=== PATIENT | female | born 1945 | race Caucasian/White ===

== ENCOUNTER → 2017-09-23 | Outpatient (CLI) | payer MEDICARE, OTHER ==
[~2017-09-23] MED LIST: ASPI81; AUGM875T PO; BUPR-175 PO; CALC500 PO; GUAI100S6 PO; MEDR4PAK3 PO; PRIL10CA PO; SIMV5TAB32 PO
[2017-09-23 11:58] LABS: AUTOMATED NEUTROPHIL # 5.9 TH/MM3 (1.8-7.7); BASOPHIL % 0.3 % (0.0-2.0); EOSINOPHIL # 0.1 TH/MM3 (0-0.4); EOSINOPHIL % 1.2 % (0.0-4.0); HEMATOCRIT 38.6 % (35.0-46.0); HEMO FLAGS DIFF FINAL; LYMPH % 16.6 % (9.0-44.0); LYMPHOCYTE # 1.4 TH/MM3 (1.0-4.8); MEAN CELL VOLUME 90.6 FL (80.0-100.0); MEAN CORPUSCULAR HEMOGLOBIN 30.6 PG (27.0-34.0); MEAN CORPUSCULAR HGB CONC 33.8 % (32.0-36.0); MONO % 12.2 % (0.0-8.0); NEUT % 69.7 % (16.0-70.0); PLATELET COUNT 371 TH/MM3 (150-450); RED BLOOD COUNT 4.26 MIL/MM3 (4.00-5.30); RED CELL DISTRIBUTION WIDTH 12.8 % (11.6-17.2); WHITE BLOOD COUNT 8.5 TH/MM3 (4.0-11.0)
[2017-09-23 12:34] LABS: ANION GAP 5 MEQ/L (5-15); BICARBONATE 29.7 MEQ/L (21.0-32.0); BLOOD UREA NITROGEN 14 MG/DL (7-18); CHLORIDE 101 MEQ/L (98-107); GLUCOSE,FASTING 86 MG/DL (74-99); SODIUM (NA) 136 MEQ/L (136-145)
[2017-09-23 12:46] LABS: ALKALINE PHOSPHATASE 92 U/L (45-117); ALT (GPT) 25 U/L (10-53); AST (GOT) 20 U/L (15-37); GLOMERULAR FILTRATION RATE 71 ML/MIN (>89); HDL CHOLESTEROL 117.3 MG/DL (40.0-60.0); LDL CHOLESTEROL 76 MG/DL (0-99); TOTAL BILIRUBIN ADULT 0.2 MG/DL (0.2-1.0)
== END ==
LOC: ELAB 10:29
PROVIDERS: ATTEND Family Medicine
DX: G47.30 Sleep apnea, unspecified (principal); E78.5 Hyperlipidemia, unspecified; I10 Essential (primary) hypertension; M25.551 Pain in right hip; F41.8 Other specified anxiety disorders; R53.83 Other fatigue; Z79.899 Other long term (current) drug therapy
CPT/HCPCS: 36415; 80053; 80061; 82248; 84443; 85025

== ENCOUNTER 2017-10-04 20:45 | Emergency (ER) | payer MEDICARE, OTHER ==
[~2017-10-04] VITALS: Ht 157.5 cm; Wt 61.0 kg
[2017-10-04 20:48] VITALS: BP 200/92; PULSE 78; RESP 16; TEMP 97.8; O2SAT 97
[2017-10-04] MEDS ORDERED: CALC1TAB87 PO (20:57)
[2017-10-04] MEDS ORDERED: SIMV20TA PO (20:57)
[2017-10-04] MEDS ORDERED: ASPI81TA23 PO (20:57)
[2017-10-04] MEDS ORDERED: OMEP20TA93 PO (20:57)
[2017-10-04] MEDS ORDERED: BUPR150CR PO (20:57)
[2017-10-04] MEDS ORDERED: BACT800T5 PO (21:23)
[2017-10-04] MEDS ORDERED: TYLETAB34 PO (21:23)
[2017-10-04] MEDS ORDERED: CLIN150C14 PO (21:23)
--- NOTE | 2017-10-04 21:23 | PD ---
HPI Chief Complaint: Skin Problem Time Seen by Provider: 21:17 Travel History International Travel<30 days: No Contact w/Intl Traveler<30days: No Traveled to known affect area: No History of Present Illness HPI 72-year-old female complaining of pain and swelling on the right side of the nose. Patient states that it started with a small lesion on the inside of the right side of the nose. Patient states that she has increasing pain and swelling and redness since then. Patient denies any fever chills. Patient denies any injury to the nose. PFSH Past Medical History High Cholesterol: Yes Diminished Hearing: No Diverticulitis: Yes Immunizations Current: No Tetanus Vaccination: < 5 Years Influenza Vaccination: No ?: Not Menopausal: Yes Past Surgical History Appendectomy: Yes Cholecystectomy: Yes Hysterectomy: Yes Social History Alcohol Use: No Tobacco Use: No Substance Use: No Allergies-Medications (Allergen,Severity, Reaction): Coded Allergies: No Known Allergies (Verified Adverse Reaction, Unknown, 10/04/17) Reported Meds & Prescriptions Reported Meds & Active Scripts Active Clindamycin (Clindamycin HCl) 150 Mg Cap 300 Mg PO QID Bactrim DS (Sulfamethoxazole-Trimethoprim) 800-160 Mg Tab 1 Tab PO BID Tylenol-Codeine #3 (Acetaminophen-Codeine) 300-30 mg Tab 1-2 Tab PO Q6H PRN Reported Calcium 600 with Vitamin D (Calcium Carbonate-Cholecalciferol) 600-400 mg-Unit Tab 2 Tab PO DAILY Wellbutrin SR 12 HR (Bupropion HCl) 150 Mg Tab 150 Mg PO DAILY Omeprazole 20 Mg Tab 20 Mg PO DAILY Aspirin EC (Aspirin) 81 Mg Tabdr 81 Mg PO DAILY Simvastatin 20 Mg Tab 20 Mg PO DAILY Review of Systems General / Constitutional: No: Fever Eyes: No: Visual changes HENT: No: Headaches Cardiovascular: No: Chest Pain or Discomfort Respiratory: No: Shortness of Breath Gastrointestinal: No: Abdominal Pain Genitourinary: No: Dysuria Musculoskeletal: No: Pain Skin: No Rash Neurologic: No: Weakness Psychiatric: No: Depression Endocrine: No: Polydipsia Hematologic/Lymphatic: No: Easy Bruising Physical Exam Narrative GENERAL: Well-nourished, well-developed patient. SKIN: Focused skin assessment warm/dry. HEAD: Normocephalic. EYES: No scleral icterus. No injection or drainage. NECK: Supple, trachea midline. No JVD or lymphadenopathy. CARDIOVASCULAR: Regular rate and rhythm without murmurs, gallops, or rubs. RESPIRATORY: Breath sounds equal bilaterally. No accessory muscle use. GASTROINTESTINAL: Abdomen soft, non-tender, nondistended. MUSCULOSKELETAL: No cyanosis, or edema. BACK: Nontender without obvious deformity. No CVA tenderness. Patient has redness swelling tenderness on the right side the nose. No induration and no drainage noted. Data Data Last Documented VS Vital Signs Date Time Temp Pulse Resp B/P (MAP) Pulse Ox O2 Delivery O2 Flow Rate FiO2 10/04/17 21:54 72 16 175/91 (119) 10/04/17 20:48 97.8 97 Orders Orders Clindamycin Inj (Cleocin Inj) (10/04/17 21:30) Ed Discharge Order (10/04/17 21:23) Acetamin-Hydrocod 325-5 Mg ([place] 5-325 (10/04/17 21:45) MDM Medical Decision Making Medical Screen Exam Complete: Yes Emergency Medical Condition: Yes Differential Diagnosis Differential diagnosis including cellulitis, abscess. Narrative Course 72-year-old female with pain swelling right side the nose. Diagnosis Primary Impression: Cellulitis Qualified Codes: L03.211 - Cellulitis of face Patient Instructions: General Instructions Additional Instructions: Take antibiotics as directed. Tylenol No. 3 as needed for pain.. Return in 2 days for recheck. Med/Other Pt SpecificInfo: Prescription(s) given Scripts Clindamycin (Clindamycin) 150 Mg Cap 300 MG PO QID for Infection, #80 CAP 0 Refills Prov: Misael Radford MD 10/04/17 Sulfamethoxazole-Trimethoprim (Bactrim DS) 800-160 Mg Tab 1 TAB PO BID for Infection, #20 TAB 0 Refills Prov: Misael Radford MD 10/04/17 Acetaminophen-Codeine (Tylenol-Codeine #3) 300-30 mg Tab 1-2 TAB PO Q6H Y for PAIN, #20 TAB 0 Refills Prov: Misael Radford MD 10/04/17 Disposition: 01 DISCHARGE HOME Condition: Stable Misael Radford MD Oct 04, 2017 21:23
[2017-10-04] MEDS ORDERED: CLINDAMYCIN PHOS 600 MG/4 ML VIAL IM ONE (21:30)
[2017-10-04] MEDS ORDERED: ACETAMINOPHEN/HYDROcodone 325 MG/5 MG TAB PO ONE (21:45)
[2017-10-04 21:54] VITALS: BP 175/91
[2017-10-05] MEDS ORDERED: ZOFR4TAB PO (18:44)
== END 2017-10-04 21:59 | disposition home or self-care (01) ==
LOC: PHEFT 20:45
DX: L03.211 Cellulitis of face (principal); E78.00 Pure hypercholesterolemia, unspecified; Z87.19 Personal history of other diseases of the digestive system
CPT/HCPCS: 96372

== ENCOUNTER 2017-10-05 17:28 | Emergency (ER) | payer MEDICARE, OTHER ==
[~2017-10-05] VITALS: Ht 157.5 cm; Wt 58.7 kg
[~2017-10-05 17:28] MED LIST changes: -ASPI81; +ASPI81TA23 PO; -AUGM875T PO; +BACT800T5 PO; -BUPR-175 PO; +BUPR150CR PO; +CALC1TAB87 PO; -CALC500 PO; +CLIN150C14 PO; -GUAI100S6 PO; -MEDR4PAK3 PO; +OMEP20TA93 PO; -PRIL10CA PO; +SIMV20TA PO; -SIMV5TAB32 PO; +TYLETAB34 PO
[2017-10-05 17:34] VITALS: PULSE 80; RESP 16; TEMP 97.8; O2SAT 98
[2017-10-05 17:45] VITALS: BP 178/86
[2017-10-05] MEDS ORDERED: ONDANSETRON ODT 4 MG TAB PO ONE (18:00)
--- NOTE | 2017-10-05 18:00 | PD ---
HPI Chief Complaint: GI Complaint Time Seen by Provider: 17:54 Travel History International Travel<30 days: No Contact w/Intl Traveler<30days: No Traveled to known affect area: No History of Present Illness HPI Patient presents for nausea and vomiting. Evaluated last night in the emergency room and diagnosed with right naris cellulitis. Started on Bactrim DS and clindamycin as well as Tylenol 3 for pain. Reports nausea and vomiting after breakfast this morning. Denies any known drug allergies. PFSH Past Medical History Hx Anticoagulant Therapy: No Cardiovascular Problems: Yes (CHOL) High Cholesterol: Yes Diabetes: No Diminished Hearing: No Diverticulitis: Yes Immunizations Current: No Tetanus Vaccination: > 5 Years Influenza Vaccination: No ?: Not Menopausal: Yes Past Surgical History Appendectomy: Yes Cholecystectomy: Yes Hysterectomy: Yes Social History Alcohol Use: No Tobacco Use: No Substance Use: No Allergies-Medications (Allergen,Severity, Reaction): Coded Allergies: No Known Allergies (Verified Adverse Reaction, Unknown, 10/05/17) Reported Meds & Prescriptions Reported Meds & Active Scripts Active Zofran (Ondansetron HCl) 4 Mg Tab 4 Mg PO Q6HR PRN Clindamycin (Clindamycin HCl) 150 Mg Cap 300 Mg PO QID Bactrim DS (Sulfamethoxazole-Trimethoprim) 800-160 Mg Tab 1 Tab PO BID Tylenol-Codeine #3 (Acetaminophen-Codeine) 300-30 mg Tab 1-2 Tab PO Q6H PRN Reported Calcium 600 with Vitamin D (Calcium Carbonate-Cholecalciferol) 600-400 mg-Unit Tab 2 Tab PO DAILY Wellbutrin SR 12 HR (Bupropion HCl) 150 Mg Tab 150 Mg PO DAILY Omeprazole 20 Mg Tab 20 Mg PO DAILY Aspirin EC (Aspirin) 81 Mg Tabdr 81 Mg PO DAILY Simvastatin 20 Mg Tab 20 Mg PO DAILY Review of Systems General / Constitutional: No: Fever Eyes: No: Visual changes HENT: No: Headaches Cardiovascular: No: Chest Pain or Discomfort Respiratory: No: Shortness of Breath Gastrointestinal: Positive: Nausea, Vomiting, No: Abdominal Pain Genitourinary: No: Dysuria Musculoskeletal: No: Pain Skin: No Rash Neurologic: No: Weakness Psychiatric: No: Depression Endocrine: No: Polydipsia Hematologic/Lymphatic: No: Easy Bruising Physical Exam Narrative GENERAL: Well-nourished, well-developed patient. SKIN: Focused skin assessment warm/dry. HEAD: Normocephalic. EYES: No scleral icterus. No injection or drainage. Right nare mildly erythematous with mild erythema NECK: Supple, trachea midline. No JVD or lymphadenopathy. CARDIOVASCULAR: Regular rate and rhythm without murmurs, gallops, or rubs. RESPIRATORY: Breath sounds equal bilaterally. No accessory muscle use. GASTROINTESTINAL: Abdomen soft, non-tender, nondistended. MUSCULOSKELETAL: No cyanosis, or edema. BACK: Nontender without obvious deformity. No CVA tenderness. Data Data Last Documented VS Vital Signs Date Time Temp Pulse Resp B/P (MAP) Pulse Ox O2 Delivery O2 Flow Rate FiO2 10/05/17 17:45 178/86 (116) 10/05/17 17:34 97.8 80 16 98 Orders Orders Ondansetron Odt (Zofran Odt) (10/05/17 18:00) [facility] Medical Decision Making Medical Screen Exam Complete: Yes Emergency Medical Condition: Yes Differential Diagnosis Drug reaction, nausea and vomiting, viral gastritis Narrative Course assessment and plan discussed with patient and at bedside. Nausea and vomiting resolved, tolerated fluid challenge. Diagnosis Primary Impression: Nausea and vomiting Qualified Codes: R11.2 - Nausea with vomiting, unspecified Patient Instructions: General Instructions Additional Instructions: Encouraged follow-up with PCP, Motrin or Tylenol for pain, discontinue T3, discontinue clindamycin, continue Bactrim DS 1 tab by mouth twice a day. Encouraged a bland high-fiber brat diet. Encouraged fluids. Anti-emetic as needed Return to the emergency room with any onset of new symptoms. Med/Other Pt SpecificInfo: Prescription(s) given Scripts Ondansetron (Zofran) 4 Mg Tab 4 MG PO Q6HR Y for NAUSEA OR VOMITING, #20 TAB 0 Refills Prov: Andrey Tsang MD 10/05/17 Disposition: 01 DISCHARGE HOME Condition: Good Andrey Tsang MD Oct 05, 2017 18:00
[2017-10-05] MEDS ORDERED: ZOFR4TAB PO (18:44)
[2017-10-05 19:49] VITALS: BP 156/84; PULSE 77; RESP 18; O2SAT 97
== END 2017-10-05 19:50 | disposition home or self-care (01) ==
LOC: PHED 17:28
DX: R11.2 Nausea with vomiting, unspecified (principal); E78.00 Pure hypercholesterolemia, unspecified
CPT/HCPCS: 99283

== ENCOUNTER → 2017-12-11 | Outpatient (CLI) | payer MEDICARE, OTHER ==
[~2017-12-11] MED LIST changes: +ZOFR4TAB PO
[2017-12-11 11:39] LABS: AUTOMATED NEUTROPHIL # 12.4 TH/MM3 (1.8-7.7); BASOPHIL % 0.3 % (0.0-2.0); EOSINOPHIL % 0.2 % (0.0-4.0); HEMATOCRIT 37.9 % (35.0-46.0); HEMOGLOBIN 12.7 GM/DL (11.6-15.3); LYMPH % 7.8 % (9.0-44.0); LYMPHOCYTE # 1.1 TH/MM3 (1.0-4.8); MEAN CELL VOLUME 88.1 FL (80.0-100.0); MEAN CORPUSCULAR HEMOGLOBIN 29.6 PG (27.0-34.0); MEAN CORPUSCULAR HGB CONC 33.6 % (32.0-36.0); MEAN PLATELET VOLUME 7.5 FL (7.0-11.0); MONO % 4.5 % (0.0-8.0); MONOCYTE # 0.6 TH/MM3 (0-0.9); NEUT % 87.2 % (16.0-70.0); PLATELET COUNT 555 TH/MM3 (150-450); RED CELL DISTRIBUTION WIDTH 13.2 % (11.6-17.2); WHITE BLOOD COUNT 14.2 TH/MM3 (4.0-11.0)
[2017-12-11 11:40] LABS: BILIRUBIN, URINE NEG (NEG); BLOOD, URINE NEG (NEG); GLUCOSE,URINE NEG (NEG); KETONE, URINE NEG (NEG); NITRITE,URINE NEG (NEG); PH, URINE 6.5 (5.0-8.5); URINE COLOR LIGHT-YELLOW (YELLW/STRAW); URINE LEUKOCYTE ESTERASE NEG (NEG)
[2017-12-11 11:58] LABS: WESTERGREN SEDIMENTATION RATE 36 mm/hr (0-30)
[2017-12-11 12:13] LABS: ALBUMIN 3.8 GM/DL (3.4-5.0); ALT (GPT) 28 U/L (10-53); AST (GOT) 25 U/L (15-37); BICARBONATE 28.9 MEQ/L (21.0-32.0); BLOOD UREA NITROGEN 17 MG/DL (7-18); CALCIUM 9.4 MG/DL (8.5-10.1); CHLORIDE 101 MEQ/L (98-107); CREATININE 0.86 MG/DL (0.50-1.00); GLOMERULAR FILTRATION RATE 65 ML/MIN (>89); GLUCOSE,RANDOM 96 MG/DL (74-106); SODIUM (NA) 137 MEQ/L (136-145)
[2017-12-11 12:14] LABS: ALKALINE PHOSPHATASE 115 U/L (45-117); C-REACTIVE PROTEIN 0.71 MG/DL (0.00-0.30); TOTAL BILIRUBIN ADULT 0.3 MG/DL (0.2-1.0); TOTAL PROTEIN 8.4 GM/DL (6.4-8.2)
[2017-12-11 12:16] LABS: RHEUMATOID FACTOR SCREEN NEGATIVE (NEGATIVE)
[2017-12-11 13:21] LABS: HEPATITIS B SURFACE ANTIGEN NEGATIVE (NEGATIVE); HEPATITIS C AB IgG REACTIVE (NEGATIVE)
[2017-12-13 23:54] LABS: THYROID PEROX AB (MICROSOMAL) LESS THAN 1 IU/mL (<9)
[2017-12-14 23:51] LABS: HEPATITIS B CORE TOTAL AB NONREACTIVE (NON-REACTVE)
[2017-12-15 23:50] LABS: THYROGLOB ABS LESS THAN 1 IU/mL (< OR = 1)
== END ==
LOC: ELAB 09:04
PROVIDERS: ATTEND Family Medicine
DX: M19.90 Unspecified osteoarthritis, unspecified site (principal); R53.83 Other fatigue
CPT/HCPCS: 36415; 80053; 81001; 82306; 84443; 85025; 85652; 86140; 86200; 86317; 86376; 86430; 86704; 86800; 86803; 87340

== ENCOUNTER → 2018-01-05 | Outpatient (CLI) | payer MEDICARE, OTHER ==
[2018-01-05 14:17] LABS: BICARBONATE 31.3 MEQ/L (21.0-32.0); BLOOD UREA NITROGEN 14 MG/DL (7-18); C-REACTIVE PROTEIN LESS THAN 0.29 MG/DL (0.00-0.30); CALCIUM 9.3 MG/DL (8.5-10.1); CHLORIDE 102 MEQ/L (98-107); GLOMERULAR FILTRATION RATE 70 ML/MIN (>89); GLUCOSE,FASTING 85 MG/DL (74-99); SODIUM (NA) 139 MEQ/L (136-145)
== END ==
LOC: ELAB 10:22
DX: M19.90 Unspecified osteoarthritis, unspecified site (principal); R77.8 Other specified abnormalities of plasma proteins; I10 Essential (primary) hypertension; E78.5 Hyperlipidemia, unspecified
CPT/HCPCS: 36415; 80048; 84165; 86140; 86803; 87522; 87902

== ENCOUNTER 2018-01-22 05:57 | Emergency (ER) | payer MEDICARE, OTHER ==
[~2018-01-22] VITALS: Ht 157.5 cm; Wt 58.0 kg
[2018-01-22 06:01] VITALS: BP 142/85; PULSE 78; RESP 18; TEMP 98.5; O2SAT 99
[2018-01-22 06:35] VITALS: BP 149/83; PULSE 73; RESP 18; O2SAT 97
--- NOTE | 2018-01-22 06:37 | PD ---
HPI Chief Complaint: Vomiting Time Seen by Provider: 06:24 Travel History International Travel<30 days: No Contact w/Intl Traveler<30days: No Traveled to known affect area: No History of Present Illness HPI The patient is a 72-year-old female that has not been feeling well for a day and a half. She did not eat or drink anything. The last 12 hours she started vomiting and could not hold down any liquids at all. She denies any diarrhea. She denies any fever. She denies any blood in the vomitus and she has not had any blood in the stool. She is not on any new medications. She had a similar episode in September 2017 when she was on clindamycin and Bactrim but the clindamycin was discontinued and she did well with simply Zofran. She has no drug allergies. The patient states her abdominal discomfort is a 6/10 in the bilateral lower quadrants. She denies any dysuria, frequency or urgency. She states there her appendix, gallbladder and uterus have all been removed. PFSH Past Medical History Hx Anticoagulant Therapy: No Cardiovascular Problems: Yes (CHOL) High Cholesterol: Yes Diabetes: No Diminished Hearing: No Diverticulitis: Yes Immunizations Current: No Menopausal: Yes Past Surgical History Appendectomy: Yes Cholecystectomy: Yes Hysterectomy: Yes Social History Alcohol Use: No Tobacco Use: No Substance Use: No Allergies-Medications (Allergen,Severity, Reaction): Coded Allergies: No Known Allergies (Verified Adverse Reaction, Unknown, 01/22/18) Reported Meds & Prescriptions Reported Meds & Active Scripts Active Reported Calcium 600 with Vitamin D (Calcium Carbonate-Cholecalciferol) 600-400 mg-Unit Tab 2 Tab PO DAILY Wellbutrin SR 12 HR (Bupropion HCl) 150 Mg Tab 150 Mg PO DAILY Omeprazole 20 Mg Tab 20 Mg PO DAILY Aspirin EC (Aspirin) 81 Mg Tabdr 81 Mg PO DAILY Simvastatin 20 Mg Tab 20 Mg PO DAILY Review of Systems Except as stated in HPI: all other systems reviewed are Neg Physical Exam Narrative GENERAL: The patient is alert, oriented 3, moderately dehydrated appearing in slight apparent distress with her bilateral lower quadrant discomfort. Her vital signs show blood pressure 142/85 but are otherwise normal. SKIN: Focused skin assessment warm/dry. HEAD: Atraumatic. Normocephalic. EYES: Pupils equal and round. No scleral icterus. No injection or drainage. ENT: No nasal bleeding or discharge. Mucous membranes pink and moist. NECK: Trachea midline. No JVD. CARDIOVASCULAR: Regular rate and rhythm. No murmur appreciated. RESPIRATORY: No accessory muscle use. Clear to auscultation. Breath sounds equal bilaterally. GASTROINTESTINAL: Abdomen soft, with tenderness to direct palpation in the bilateral lower quadrants, nondistended. Hepatic and splenic margins not palpable. No guarding or rebound is present. MUSCULOSKELETAL: No obvious deformities. No clubbing. No cyanosis. No edema. NEUROLOGICAL: Awake and alert. No obvious cranial nerve deficits. Motor grossly within normal limits. Normal speech. PSYCHIATRIC: Appropriate mood and affect; insight and judgment normal. Data Data Last Documented VS Vital Signs Date Time Temp Pulse Resp B/P (MAP) Pulse Ox O2 Delivery O2 Flow Rate FiO2 01/22/18 06:35 73 18 149/83 (105) 97 01/22/18 06:01 98.5 Orders Orders Complete Blood Count With Diff (01/22/18 06:41) Comprehensive Metabolic Panel (01/22/18 06:41) Lipase (01/22/18 06:41) Urinalysis - C+S If Indicated (01/22/18 06:41) Ct Abd/Pel W Iv Contrast(Rout) (01/22/18 06:41) Iv Access Insert/Monitor (01/22/18 06:41) Ecg Monitoring (01/22/18 06:41) Oximetry (01/22/18 06:41) Sodium Chloride 0.9% Flush (Ns Flush) (01/22/18 06:45) Sodium Chlor 0.9% 1000 Ml Inj (Ns 1000 M (01/22/18 06:45) Ondansetron Inj (Zofran Inj) (01/22/18 06:45) Labs Laboratory Tests Test 01/22/18 06:30 White Blood Count 10.3 TH/MM3 Red Blood Count 4.95 MIL/MM3 Hemoglobin 14.0 GM/DL Hematocrit 43.5 % Mean Corpuscular Volume 88.1 FL Mean Corpuscular Hemoglobin 28.3 PG Mean Corpuscular Hemoglobin Concent 32.2 % Red Cell Distribution Width 12.7 % Platelet Count 437 TH/MM3 Mean Platelet Volume 7.7 FL Neutrophils (%) (Auto) 83.0 % Lymphocytes (%) (Auto) 7.1 % Monocytes (%) (Auto) 9.1 % Eosinophils (%) (Auto) 0.6 % Basophils (%) (Auto) 0.2 % Neutrophils # (Auto) 8.6 TH/MM3 Lymphocytes # (Auto) 0.7 TH/MM3 Monocytes # (Auto) 0.9 TH/MM3 Eosinophils # (Auto) 0.1 TH/MM3 Basophils # (Auto) 0.0 TH/MM3 CBC Comment DIFF FINAL Differential Comment Sodium Level 135 MEQ/L Potassium Level 3.7 MEQ/L Chloride Level 100 MEQ/L MDM Medical Decision Making Medical Screen Exam Complete: Yes Emergency Medical Condition: Yes Medical Record Reviewed: Yes Differential Diagnosis Gastritis, gastroenteritis, colitis, small bowel obstruction-unlikely, medication reaction-unlikely Narrative Course It is now 0700 and the patient is transferred to Dr. Burks. Lucas Ortiz MD Jan 22, 2018 06:37
[2018-01-22] MEDS ORDERED: SODIUM CHLORIDE 0.9% FLUSH 10 ML FLUSH IV FLUSH PRN (06:45)
[2018-01-22] MEDS ORDERED: ONDANSETRON HCL 4 MG/2 ML VIAL IV ONE (06:45)
[2018-01-22 06:50] LABS: AUTOMATED NEUTROPHIL # 8.6 TH/MM3 (1.8-7.7); BASOPHIL % 0.2 % (0.0-2.0); EOSINOPHIL # 0.1 TH/MM3 (0-0.4); EOSINOPHIL % 0.6 % (0.0-4.0); HEMATOCRIT 43.5 % (35.0-46.0); LYMPH % 7.1 % (9.0-44.0); LYMPHOCYTE # 0.7 TH/MM3 (1.0-4.8); MEAN CELL VOLUME 88.1 FL (80.0-100.0); MEAN CORPUSCULAR HEMOGLOBIN 28.3 PG (27.0-34.0); MEAN CORPUSCULAR HGB CONC 32.2 % (32.0-36.0); MEAN PLATELET VOLUME 7.7 FL (7.0-11.0); MONO % 9.1 % (0.0-8.0); MONOCYTE # 0.9 TH/MM3 (0-0.9); PLATELET COUNT 437 TH/MM3 (150-450); RED BLOOD COUNT 4.95 MIL/MM3 (4.00-5.30); RED CELL DISTRIBUTION WIDTH 12.7 % (11.6-17.2); WHITE BLOOD COUNT 10.3 TH/MM3 (4.0-11.0)
[2018-01-22] MEDS: SODIUM CHLOR 0.9% 1000 ML INJ 1,000 ML IV SCH ×2 (06:50→07:39)
[2018-01-22 07:00] VITALS: BP 140/70; PULSE 71; RESP 16; O2SAT 98
[2018-01-22 07:05] LABS: CHLORIDE 100 MEQ/L (98-107); SODIUM (NA) 135 MEQ/L (136-145)
[2018-01-22 07:09] LABS: ALBUMIN 3.7 GM/DL (3.4-5.0); BICARBONATE 29.5 MEQ/L (21.0-32.0); CALCIUM 9.1 MG/DL (8.5-10.1); GLUCOSE,RANDOM 94 MG/DL (74-106)
[2018-01-22 07:10] LABS: BLOOD UREA NITROGEN 13 MG/DL (7-18)
[2018-01-22 07:12] LABS: ALT (GPT) 57 U/L (10-53); AST (GOT) 48 U/L (15-37); CREATININE 0.77 MG/DL (0.50-1.00); GLOMERULAR FILTRATION RATE 73 ML/MIN (>89)
[2018-01-22 07:14] LABS: TOTAL BILIRUBIN ADULT 0.3 MG/DL (0.2-1.0); TOTAL PROTEIN 8.5 GM/DL (6.4-8.2)
[2018-01-22 07:15] LABS: ALKALINE PHOSPHATASE 112 U/L (45-117)
[2018-01-22] MEDS ORDERED: IOHEXOL 350 MG/ML 10 ML VIAL (for RAD DIAG) IVCONTRAST ONE (07:33)
--- NOTE | 2018-01-22 07:48 | RADRPT ---
EXAM DATE/TIME: 01/22/2018 07:24 [place] COMPARISON: No previous studies available for comparison. INDICATIONS : Bilateral lower quadrant pain. Vomiting x 1 1/2 days. IV CONTRAST: 75 cc Omnipaque 350 (iohexol) IV ORAL CONTRAST: No oral contrast ingested. RADIATION DOSE: 5.47 CTDIvol (mGy) MEDICAL HISTORY : Diverticulitis. SURGICAL HISTORY : Appendectomy. Cholecystectomy.Hysterectomy. ENCOUNTER: Initial ACUITY: 2 days PAIN SCALE: 1/10 LOCATION: Bilateral lower quadrant TECHNIQUE: Volumetric scanning of the abdomen and pelvis was performed. Using automated exposure control and ad justment of the mA and/or kV according to patient size, radiation dose was kept as low as reasonably achievable to obtain optimal diagnostic quality images. DICOM format image data is available electro nically for review and comparison. FINDINGS: Lung bases are clear. No acute findings in the liver, spleen, adrenals, kidneys or pancreas. Previous cholecystectomy, hysterectomy and appendectomy. No biliary ductal dilatation. There is mild constipation. No free air or free fluid. No bowel obstruction. No acute bony abnormalit ies. CONCLUSION: 1. No acute findings. Mild constipation. No renal calculi or obstructive uropathy identified. Danie Cedillo MD on January 22, 2018 at 7:38 Board Certified Radiologist. This report was verified electronically.
[2018-01-22 08:05] VITALS: BP 156/76; PULSE 68; RESP 16; O2SAT 98
[2018-01-22] MEDS ORDERED: PROM1SUP7 RECTAL (08:07)
--- NOTE | 2018-01-22 08:07 | PD ---
Physical Exam Narrative Patient is a 72-year-old female presented here for nausea and vomiting, patient was signed out to me from Dr. Ortiz next shift pending labs and CAT scan. Labs and CAT scan not showing any concerns for intra-abdominal pathology. Explained the results with the patient and patient feels much better after IV fluids and states that she is not nauseated anymore. I will give the patient prescription for antinausea medications and recommended that she follows up with the primary care physician. Patient understands and agrees to the plan of care. Data Data Last Documented VS Vital Signs Date Time Temp Pulse Resp B/P (MAP) Pulse Ox O2 Delivery O2 Flow Rate FiO2 01/22/18 07:00 16 98 Room Air 01/22/18 07:00 71 01/22/18 06:01 98.5 Orders Orders Complete Blood Count With Diff (01/22/18 06:41) Comprehensive Metabolic Panel (01/22/18 06:41) Lipase (01/22/18 06:41) Urinalysis - C+S If Indicated (01/22/18 06:41) Ct Abd/Pel W Iv Contrast(Rout) (01/22/18 06:41) Iv Access Insert/Monitor (01/22/18 06:41) Ecg Monitoring (01/22/18 06:41) Oximetry (01/22/18 06:41) Sodium Chloride 0.9% Flush (Ns Flush) (01/22/18 06:45) Sodium Chlor 0.9% 1000 Ml Inj (Ns 1000 M (01/22/18 06:45) Ondansetron Inj (Zofran Inj) (01/22/18 06:45) Iohexol 350 Inj (Omnipaque 350 Inj) (01/22/18 07:33) Labs Laboratory Tests Test 01/22/18 06:30 White Blood Count 10.3 TH/MM3 Red Blood Count 4.95 MIL/MM3 Hemoglobin 14.0 GM/DL Hematocrit 43.5 % Mean Corpuscular Volume 88.1 FL Mean Corpuscular Hemoglobin 28.3 PG Mean Corpuscular Hemoglobin Concent 32.2 % Red Cell Distribution Width 12.7 % Platelet Count 437 TH/MM3 Mean Platelet Volume 7.7 FL Neutrophils (%) (Auto) 83.0 % Lymphocytes (%) (Auto) 7.1 % Monocytes (%) (Auto) 9.1 % Eosinophils (%) (Auto) 0.6 % Basophils (%) (Auto) 0.2 % Neutrophils # (Auto) 8.6 TH/MM3 Lymphocytes # (Auto) 0.7 TH/MM3 Monocytes # (Auto) 0.9 TH/MM3 Eosinophils # (Auto) 0.1 TH/MM3 Basophils # (Auto) 0.0 TH/MM3 CBC Comment DIFF FINAL Differential Comment Blood Urea Nitrogen 13 MG/DL Creatinine 0.77 MG/DL Random Glucose 94 MG/DL Total Protein 8.5 GM/DL Albumin 3.7 GM/DL Calcium Level 9.1 MG/DL Alkaline Phosphatase 112 U/L Aspartate Amino Transf (AST/SGOT) 48 U/L Alanine Aminotransferase (ALT/SGPT) 57 U/L Total Bilirubin 0.3 MG/DL Sodium Level 135 MEQ/L Potassium Level 3.7 MEQ/L Chloride Level 100 MEQ/L Carbon Dioxide Level 29.5 MEQ/L Anion Gap 6 MEQ/L Estimat Glomerular Filtration Rate 73 ML/MIN Lipase 102 U/L [facility] Supervised Visit with [place]: Yes Diagnosis Primary Impression: Nausea & vomiting Qualified Codes: G43.A0 - Cyclical vomiting, not intractable Scripts Promethazine Supp (Phenergan Supp) 25 Mg Supp 25 MG RECTAL Q6H Y for NAUSEA OR VOMITING, #20 SUPP 0 Refills Prov: Murphy Burks MD 01/22/18 Disposition: 01 DISCHARGE HOME Condition: Stable Murphy Burks MD Jan 22, 2018 08:07
[2018-01-22 08:50] VITALS: BP 161/83; PULSE 72; RESP 16; O2SAT 98
== END 2018-01-22 09:43 | disposition home or self-care (01) ==
LOC: PHED 05:57
DX: G43.A0 Cyclical vomiting, in migraine, not intractable (principal); E78.00 Pure hypercholesterolemia, unspecified
CPT/HCPCS: 74177; 80053; 83690; 85025; 96361; 96374; 99284; J2405; J7030; Q9967